=== PATIENT | male | born 1940 | race Caucasian/White ===

== ENCOUNTER → 2019-01-20 | Outpatient (CLI) | payer OTHER ==
--- NOTE | 2019-01-20 14:47 | EKG ---
[address] [email or web address] [address] ELECTROCARDIOGRAM REPORT Name: FAINA CASTELLANOS [id number] ������������������ Admission: 01/20/19 ������������������ Attend Phys: Mahesh Russell MD, FAAF Discharge: ������������������ Date of : 40 Report #: [id number] ����������������������������������������������������������������� [id number] THIS REPORT FOR: //name// [facility] Test Date: 2019-01-20 Test Time: 11:49:27 Pat Name: FAINA CASTELLANOS Department: Room: Gender: Furnace [employer]: Gisel AHMADI : 1940 Requested By: Mahesh Russell Order Number: [id number] MD: Theodore Aguilar Measurements Intervals [place] Rate: 69 P: [place]: QRS: -1 QRSD: 91 T: 54 QT: 374 QTc: 401 Interpretive Statements Atrial fibrillation Ventricular premature complex Borderline low voltage, extremity leads No previous ECG available for comparison Electronically Signed On 01-20-2019 14:47:07 CDT by Theodore Aguilar [email or web address] ��������������������������������������������� <ELECTRONICALLY SIGNED> ���������������������������������������� By: Theodore Aguliar MD ��������������������������������������������� 01/20/19 1447 1149 1149 Theodore Aguilar MD /LYNDA
== END ==
LOC: CV 11:00
DX: I48.0 Paroxysmal atrial fibrillation (principal); I49.3 Ventricular premature depolarization